=== PATIENT | female | born 1980 | race Caucasian/White ===

== ENCOUNTER 2024-11-18 05:42 | Emergency (ER) | payer MEDICAID, OTHER ==
[2024-11-18] MEDS ORDERED: Acetaminophen 325 MG TAB ONE (06:08)
[2024-11-18] MEDS ORDERED: Metoclopramide HCl 10 MG (2 mL) VIAL ONE (06:08)
[2024-11-18] MEDS ORDERED: Ketorolac Tromethamine 30 MG (1 mL) VIAL ONE (06:08)
== END 2024-11-18 06:57 | disposition home or self-care (01) ==
LOC: ERS 05:42
DX: G44.209 Tension-type headache, unspecified, not intractable (principal); J01.10 Acute frontal sinusitis, unspecified; F17.210 Nicotine dependence, cigarettes, uncomplicated
CPT/HCPCS: 96372; 99283; J1885; J2765